=== PATIENT | female | born 1945 | race Hispanic/Latino ===

== ENCOUNTER → 2018-08-23 | Outpatient (CLI) | payer BC, MEDICARE ==
--- NOTE | 2018-08-24 07:19 | Diagnostic Imaging Report ---
EXAMINATION: CT scan of the chest without contrast. TECHNIQUE: Spiral CT images of the chest were performed from the lung apices to the level of the adrenal glands. No intravenous contrast was administered per referring physician request. Coronal and sagittal reformatted images were obtained. COMPARISON: None. CLINICAL HISTORY:Congestion, concern for fluid and lungs DISCUSSION: ABSENCE OF INTRAVENOUS CONTRAST DECREASES SENSITIVITY FOR DETECTION OF FOCAL LESIONS AND VASCULAR PATHOLOGY. LINES/TUBES: None. LUNGS AND AIRWAYS: Linear scar or subsegmental atelectasis in the medial segment of the right middle lobe, the inferior lingula, and left lower lobe. The lungs are otherwise clear without consolidation or mass lesion. The airways are normal, without endobronchial lesions. PLEURA: No pneumothorax or pleural effusions. HEART AND MEDIASTINUM: The thyroid gland is normal. There is no ectasia or aneurysmal dilatation of the thoracic aorta. Great vessel origins are of normal caliber. Common origin of the brachiocephalic and left common carotid artery from the aortic arch. The pulmonary outflow tract is of normal caliber. Atherosclerotic calcification of the innominate artery, aortic arch, and [place] coronary arteries. No pericardial effusion. Heart size is normal with prominence of the epicardial fat. LYMPH NODES: Single subcarinal lymph node is at the upper limits of normal in size (9 mm short axis). No axillary, hilar, or mediastinal lymphadenopathy. ABDOMEN: Visualized portions of the liver, spleen, pancreas, and adrenal glands are unremarkable. Partially visualized duodenal diverticulum. BONES AND SOFT TISSUES: No osseous destructive lesions. Multiple healed right-sided rib fractures. Dystrophic calcifications within the breasts. Otherwise no focal soft tissue abnormalities. IMPRESSION: No acute thoracic CT abnormalities. No pleural effusion or pulmonary edema per clinical query. Scattered foci of linear scar versus subsegmental atelectasis as above. Atherosclerotic vascular disease. Signed by: Dr. Timothy Zamora M.D. on 08/24/2018 7:16 AM
== END ==
LOC: CT 16:29
PROVIDERS: ATTEND Family Medicine
DX: J90 Pleural effusion, not elsewhere classified (principal); Z85.41 Personal history of malignant neoplasm of cervix uteri
CPT/HCPCS: 71250